=== PATIENT | female | born 1985 | race Caucasian/White ===

== ENCOUNTER 2023-07-05 20:57 | Emergency (ER) | payer OTHER ==
[2023-07-05 21:05] VITALS: BP 115/60; PULSE 80; RESP 18; TEMP 99; BMI 29.4
== END 2023-07-05 23:14 | disposition home or self-care (01) ==
LOC: JERFT 20:57
DX: D23.22 Other benign neoplasm of skin of left ear and external auricular canal (principal); R59.0 Localized enlarged lymph nodes; H92.02 Otalgia, left ear; R51.9 Headache, unspecified; Z20.822 Contact with and (suspected) exposure to COVID-19
CPT/HCPCS: 0241U-QW; 87651; 99283-25

== ENCOUNTER 2024-04-06 11:58 | Emergency (ER) | payer OTHER ==
[2024-04-06 12:06] VITALS: BMI 27.4
[2024-04-06] MEDS ORDERED: ACETAMINOPHEN INJECTION 100 ML IVPB ONE ×2 (12:41→18:38)
[2024-04-06] MEDS ORDERED: LIDOCAINE 4% PATCH TP ONE (12:42)
[2024-04-06] MEDS: LIDOCAINE 5% TOPICAL PATCH TP ONE (12:58)
[2024-04-06] MEDS: ACETAMINOPHEN 1000 MG/100 ML BAG IVPB ONE ×2 (12:59→18:56)
[2024-04-06 13:27] LABS: BASO % 0.7 % (0-2.0); EOS % 2.6 % (0-4.5); HEMATOCRIT 35.3 % (32.4-45.2); HEMOGLOBIN 11.5 GM/dL (10.7-15.3); LYMPH % 30.4 % (8-40); MCH 27.5 pg (25.7-33.7); MCHC 32.4 g/dl (32.0-36.0); MEAN CELL VOLUME 84.9 fl (80-96); MEAN PLT VOLUME 8.6 fl (7.5-11.1); MONO % 6.9 % (3.8-10.2); NEUT % 59.4 % (42.8-82.8); PLATELET COUNT 168 10^3/uL (134-434); RBC 4.16 M/mm3 (3.60-5.2); RDW 15.6 % (11.6-15.6); WHITE BLOOD COUNT 6.4 K/mm3 (4.0-10.0)
[2024-04-06] MEDS ORDERED: morphine SULFATE 4 MG/ML VIAL ONE (13:40)
[2024-04-06] MEDS: morphine CARPU-JECT 4 MG/1 ML DISP.SYRIN IVPUSH ONE (13:45)
[2024-04-06] MEDS: KETOROLAC TROMETHAMINE 30 MG/1 ML VIAL IM ONE (13:46)
[2024-04-06 13:57] LABS: POTASSIUM 4.2 mmol/L (3.5-5.1)
[2024-04-06 13:59] LABS: CALCIUM 8.6 mg/dL (8.5-10.1)
[2024-04-06 14:00] LABS: ALBUMIN 3.7 g/dl (3.4-5.0); BLOOD UREA NITROGEN 15.8 mg/dL (7-18)
[2024-04-06 14:03] LABS: CREATININE 0.7 mg/dL (0.55-1.3)
[2024-04-06 14:04] LABS: BILIRUBIN,TOTAL 0.2 mg/dL (0.2-1); TOT PROT 6.8 g/dl (6.4-8.2)
[2024-04-06 15:09] VITALS: RESP 18
[2024-04-06] MEDS ORDERED: KETOROLAC TROMETHAMINE 30 MG/1 ML VIAL ONE (15:22)
[2024-04-06] MEDS: KETOROLAC TROMETHAMINE 30 MG/1 ML VIAL IVPUSH ONE (15:27)
[2024-04-06 20:43] VITALS: BP 120/65; PULSE 60; TEMP 98.1
[2024-04-06] MEDS ORDERED: LIDOCAINE PATCH REMOVAL MC SCH (22:00)
== END 2024-04-06 20:44 | disposition short-term general hospital (02) ==
LOC: JER 11:58
PROC: 3E0333Z Introduction of Anti-inflammatory into Peripheral Vein, Percutaneous Approach (ICD-10-PCS; principal; 2024-04-06)
PROC: 3E033NZ Introduction of Analgesics, Hypnotics, Sedatives into Peripheral Vein, Percutaneous Approach (ICD-10-PCS; 2024-04-06)
PROC: 3E033NZ Introduction of Analgesics, Hypnotics, Sedatives into Peripheral Vein, Percutaneous Approach (ICD-10-PCS; 2024-04-06)
PROC: 3E033NZ Introduction of Analgesics, Hypnotics, Sedatives into Peripheral Vein, Percutaneous Approach (ICD-10-PCS; 2024-04-06)
DX: M54.16 Radiculopathy, lumbar region (principal); M79.662 Pain in left lower leg; Z20.822 Contact with and (suspected) exposure to COVID-19
CPT/HCPCS: 36415; 80053; 84703; 85025; 87635; 99285-25; J0131